=== PATIENT | female | born 1995 | race African-American/Black ===

== ENCOUNTER 2016-04-19 21:27 | Emergency (ER) ==
--- NOTE | 2016-04-19 23:03 | PROVIDER DOCUMENTATION ---
HPI-EENT General - General Source: patient - History of Present Illness-EENT General EENT Location: reports: ear (R), ear (L), throat Quality of Pain: reports: aching, other (itching) Severity: reports: mild, moderate Onset/Duration: reports: 3 days ago Timing: reports: still present Prearrival Treatment: Initiated no prearrival treatment Associated Symptoms: reports: sore throat - Ears Ear Problem Symptoms: reports: earache - Throat/Dental Throat/Dental Problem Symptoms: reports: sore throat <Pamela Akbar - Last Filed: 04/19/16 23:56> <Demario Duncan - Last Filed: 04/19/16 23:59> - General Chief Complaint: Earache Stated Complaint: EAR PAIN/COUGH/SINUS PAIN Time Seen by Provider: 04/19/16 22:57 Allergies/Adverse Reactions: Patient Allergies Allergy/AdvReac Type Severity Reaction Status Date / Time No Known Allergies Allergy Verified 12/10/15 13:33 Home Medications: Home Medication List Medication Instructions Recorded Confirmed Last Taken Type Guaifenesin/Codeine [Robitussin-AC] 10 ml PO Q4H PRN PRN #8 oz 04/19/16 Unknown Rx - History of Present Illness-EENT General Nature of Presenting Problem: 20 Y/O F presents to ED with EENT. Pt couples of a 3x day onset of bilateral ear pain, complains of itching, and pain in her throat. (Pamela Akbar) Review of Systems - Adult - REVIEW OF SYSTEMS - ADULT Constitutional: denies: chills, fever Eyes: reports: no symptoms reported Ears, Nose, Mouth & Throat: reports: ear pain, throat pain Cardiovascular: reports: no symptoms reported Respiratory: reports: no symptoms reported Gastrointestinal: reports: no symptoms reported Genitourinary: reports: no symptoms reported Musculoskeletal: reports: no symptoms reported Integumentary: reports: no symptoms reported Neurological: reports: no symptoms reported Psychiatric: reports: no symptoms reported Endocrine: reports: no symptoms reported Hematologic/Lymphatic: reports: no symptoms reported Allergic/Immunologic: reports: no symptoms reported All Other Systems: Reviewed and Negative <Pamela Akbar - Last Filed: 04/19/16 23:56> Past History - Adult - PAST MEDICAL HISTORY-ADULT Review of Records: reports: Old Records Reviewed, Nursing Assessment Review, Medications Reviewed, Social history reviewed & non-contributory. Major Childhood Illnesses: reports: denies history Cardiovascular: reports: denies history Respiratory: reports: denies history Gastrointestinal: reports: denies history Obstetrical/Gynecological: reports: denies history Musculoskeletal: reports: denies history Neurological: reports: denies history - PRIOR SURGERIES/PROCEDURES Surgical/Procedure History: reports: none - IMMUNIZATION STATUS Childhood Immunizations: See Nurse Assessment Flu Vaccine: See Nurse Assessment - FAMILY HISTORY Family History: reviewed, not pertinent <Pamela Akbar - Last Filed: 04/19/16 23:56> Physical Exam- EENT - Physical Exam EENT Initial Vital Signs Reviewed: Yes General Appearance: appears well, alert, no apparent distress Eye Exam: bilateral eye: normal inspection, PERRL, EOMI Ear Exam: bilateral ear: auricle normal, canal normal, TM normal Nasal Exam: normal inspection Throat Exam: pharynx swelling. negative: pharynx normal Neck: non-tender, full range of motion, supple, normal inspection Respiratory: chest non-tender, lungs clear, normal breath sounds Cardiovascular: normal peripheral pulses, regular rate, rhythm Abdominal Exam: normal bowel sounds, non tender, soft Lymphatic: no adenopathy Back Exam: normal inspection, no CVA tenderness, no vertebral tenderness Extremity: normal range of motion, non-tender Integumentary: normal color, normal turgor, warm/dry Neurologic: bar gauger and lubricator tender II-XII nml as tested Psych/Mental Status: normal mood/affect, normal thought content, normal thought process, oriented x 3 <Pamela Akbar - Last Filed: 04/19/16 23:56> Progress <Pamela Akbar - Last Filed: 04/19/16 23:56> <Demario Duncan - Last Filed: 04/19/16 23:59> - PLAN OF CARE/RESULTS Progress/Plan/Lab Results: Laboratory Tests 04/19/16 23:00 WBC 4.73 L RBC 4.31 Hgb 12.3 Hct 38.4 MCV 89.1 MCH 28.5 MCHC 32.0 L RDW Std Deviation 12.3 Plt Count 298 MPV 10.8 H Immature Gran % (Auto) 0.2 Neut % (Auto) 17.0 L Lymph % (Auto) 60.0 H [place] % (Auto) 19.7 H Eos % (Auto) 2.3 Baso % (Auto) 0.8 Immature Gran # (Auto) 0.01 Neut # (Auto) 0.80 L Lymph # (Auto) 2.84 [place] # (Auto) 0.93 H Eos # (Auto) 0.11 Baso # (Auto) 0.04 Orders Category Date Time Status CBC WITH DIFF [HEME] Stat Lab 04/19/16 23:[address] Stat Lab 04/19/16 22:45 Uncollected Vital Signs - 24 hr 04/19/16 04/19/16 21:40 23:16 Temperature 98 F 97.9 F Pulse Rate 84 76 Respiratory 18 18 Rate Blood Pressure 139/70 122/85 O2 Sat by Pulse 99 100 Oximetry (Pamela Akbar) Departure - Departure Time of Disposition Order: 23:56 Certified Medical Emergency: Emergent <Pamela Akbar - Last Filed: 04/19/16 23:56> - Departure Time of Disposition Order: 23:57 Certified Medical Emergency: Emergent <Demario Duncan - Last Filed: 04/19/16 23:59> - Departure DIAGNOSIS: Mononucleosis syndrome Disposition: HOME 01 Condition: Stable Additional Instructions: ED Follow Up Instructions: You have been treated by a care provider in the Emergency Department. These instructions are being provided to you so you can have an understanding of how to care for yourself upon discharge. Upon discharge from the Emergency Department, you are responsible for making arrangements for follow-up care by a physician of your choice. Take all prescribed medications as directed. Return to the Emergency Department immediately for any new or worsening symptoms. You may call the Physician Referral phone number at [phone] to obtain a list of Physicians who are taking new patients. ED Follow Up Instructions: You have been treated by a care provider in the Emergency Department. These instructions are being provided to you so you can have an understanding of how to care for yourself upon discharge. Upon discharge from the Emergency Department, you are responsible for making arrangements for follow-up care by a physician of your choice. Take all prescribed medications as directed. Return to the Emergency Department immediately for any new or worsening symptoms. You may call the Physician Referral phone number at [phone] to obtain a list of Physicians who are taking new patients. Prescriptions: Guaifenesin/Codeine [Robitussin-AC] 10 ml PO Q4H PRN PRN #8 oz PRN Reason: Cough Referrals: None,PCP [Primary Care Provider] - Attestation - Scribe Verification/Attestation Scribe:: Pamela Akbar Acting as Scribe for:: Demario Duncan Scribe documention review:: This chart was documented by a scribe and accurately reflects the service the provider performed and the decisions made by the provider. <Pamela Akbar - Last Filed: 04/19/16 23:56> Physician Attestation
[2016-04-19 23:12] LABS: MANUAL DIFF NEEDED? NO
[2016-04-19 23:17] VITALS: BP 122/85
[2016-04-19 23:42] LABS: BASO% 0.8 % (0.0-0.8); EOS# 0.11 X1000 (0.0-0.7); EOS% 2.3 % (0.0-10.0); HEMATOCRIT 38.4 % (37.0-47.0); HEMOGLOBIN 12.3 g/dL (12.0-16.0); IMM GRAN# 0.01 X1000 (0.0-0.04); IMM GRAN% 0.2 % (0.0-0.5); LYMPH# 2.84 X1000 (1.2-3.4); MCH 28.5 PG (27-31); MCV 89.1 FL (81-99); MONO# 0.93 X1000 (0.11-0.59); MONO% 19.7 % (1.7-9.3); MPV 10.8 FL (7.4-10.4); PLT 298 X1000 (130-400); RBC 4.31 XMIL (4.2-5.4)
[2016-04-19] MEDS ORDERED: TORADOL PO ONE (23:58)
== END 2016-04-20 00:12 | disposition home or self-care (01) ==
LOC: P.ED 21:27
DX: B27.90 Infectious mononucleosis, unspecified without complication (principal); H92.03 Otalgia, bilateral; J02.9 Acute pharyngitis, unspecified; R05 Cough; J34.89 Other specified disorders of nose and nasal sinuses
CPT/HCPCS: 85025; 87081; 87430